=== PATIENT | male | born 1980 | race Caucasian/White ===

== ENCOUNTER → 2021-06-24 | Outpatient (CLI) | payer OTHER ==
[~2021-06-24] MED LIST: HYDR-2761 PO; IBUP-1027 PO; OXYC-325 PO
== END ==
LOC: LAB 10:05
PROVIDERS: ATTEND Surgery
DX: Z01.812 Encounter for preprocedural laboratory examination (principal); Z20.822 Contact with and (suspected) exposure to COVID-19
CPT/HCPCS: U0003

== ENCOUNTER 2021-06-26 06:05 | Day surgery (SDC) | payer OTHER ==
[~2021-06-26] VITALS: Ht 198.1 cm; Wt 118.0 kg
[~2021-06-26 06:05] MED LIST changes: +ACETAMINOPHEN 500 MG TABLET PO PRN; +HYDROmorphone 2 MG/ML INJ. IVP PRN; +IV RINGERS,LACTATED 1000ML 1,000 ML IV SCH; -OXYC-325 PO; +PROCHLORPERAZINE 10 MG/2 ML VIAL. IVP PRN; +fentaNYL PF VIAL 100 MCG/2 ML VIAL IVP PRN
[2021-06-26 06:32] VITALS: BP 120/69
[2021-06-26] MEDS ORDERED: PROPOFOL 10 MG/ML (20ML) VIAL. IV ONE (06:47)
[2021-06-26] MEDS ORDERED: fentaNYL PF VIAL 100 MCG/2 ML VIAL ONE ×2 (06:48→08:16)
[2021-06-26] MEDS ORDERED: ROCURONIUM 50 MG/5 ML VIAL. ONE (06:48)
[2021-06-26] MEDS ORDERED: ONDANSETRON PF 4 MG/2 ML VIAL. ONE (06:48)
[2021-06-26] MEDS ORDERED: LIDOCAINE 1% PF 5 ML VIAL. ONE (06:48)
[2021-06-26] MEDS ORDERED: DEXAMETHASONE SOD PHOS 4 MG/ML VIAL ONE (06:48)
[2021-06-26] MEDS ORDERED: GLYCOPYRROLATE 1 MG/5 ML VIAL. ONE (06:51)
[2021-06-26] MEDS ORDERED: BUPIVACAINE-EPI 0.25%-1:200000 MPF 30 ML VIAL. ONE (07:03)
[2021-06-26] MEDS ORDERED: KETAMINE HCL IN NACL, ISO-OSM 50 MG/5 ML SYRINGE ONE (07:22)
[2021-06-26] MEDS ORDERED: SUGAMMADEX SODIUM 200 MG/2 ML VIAL. IVP ONE (08:00)
[2021-06-26] MEDS ORDERED: SURGICEL HEMOSTAT 4X8 EACH. ONE (08:04)
[2021-06-26] MEDS ORDERED: HYDROmorphone 2 MG/ML INJ. ONE (08:28)
--- NOTE | 2021-06-26 08:34 | PDOC4 ---
Operative Note Operative Note Date: June 262021 at 8:30 AM Preoperative diagnosis: Chronic cholecystitis cholelithiasis Postoperative diagnosis: Same Procedure: Laparoscopic cholecystectomy with fluorescein cholangiography Surgeon: Earl Specimen: Gallbladder Dictation: Patient is a 40-year-old male who is had right upper quadrant abdominal pain for couple of years most recently had ultrasound showing gallstones and mildly thickened gallbladder wall. The procedure of laparoscopic cholecystectomy was explained to the patient detail risk-benefit were also discussed occluding bleeding infection injury to intra-abdominal contents possible necessitating further open operations alternatives to this procedure also discussed with the patient who seemed to understand and gave a verbal and written consent to have the procedure performed. Patient was taken to the operating room placed in the supine position general anesthesia was initiated once patient was sleeping intubated his abdomen was [id number] and draped usual sterile fashion using ChloraPrep. An area just below the umbilicus was injected with quarter percent Marcaine with epinephrine incision made 11 blade scalpel and a varies needle was placed within the abdomen creating pneumoperitoneum once this was complete the millimeter port was placed a 5 mm camera is placed within the abdomen abdomen was inspected no other abnormalities were noted was noted the gallbladder is somewhat thickened with some omental adhesions. A 5 mm port was placed in the epigastrium a 5 mm port was placed in the right lateral abdomen a 5 mm port was placed in the right midabdomen all under direct visualization. The dome of the gallbladder is grasped retracted cephalad, the adherent tissues to the omentum were taken down blunt dissection exposing the gallbladder the infundibulum the gallbladder is grasped tract laterally exposing the triangle. The adherent tissues the triangle were taken down with blunt dissection exposing the cystic duct and cystic artery fluorescing cholangiography was performed did show that the cystic duct was obstructed with a large stone the common bile duct was visualized with good dye. The cystic duct was doubly clipped and transected the cystic artery was clipped and transected the gallbladder was taken off the liver with hook electrocautery. There was some bleeding in the fossa this was controlled with Surgicel packings the gallbladder was placed in Endo Catch bag moving the umbilicus the right upper quadrant was irrigated and suctioned dry hemostasis deemed appropriate at that point and the pneumoperitoneum was reduced all ports were removed the fasc ial defect at the umbilicus was closed with a [id number] 0 Vicryl suture and the skin was reapproximated all port sites for subcuticular Monocryl Mastisol Steri-Strips and island dressings were applied. Patient was awakened extubated operating room taken to recovery in stable condition all sponge instrument needle counts listed as correct estimated blood loss 20 mL BAMBI GARY MD Jun 26, 2021 08:34
[2021-06-26] MEDS ORDERED: OXYC-325 PO (08:36)
--- NOTE | 2021-06-26 08:38 | DISCH ---
DISCHARGE INSTRUCTIONS Condition on Discharge Condition on Discharge: Stable Activity After Discharge Activity Instructions for Disc: Avoid exertion Other activity instructions: No lifting more than 20 pounds for 2 weeks Diet after Discharge Diet after Discharge: Low Fat Wound Incision Care Other wound/incision instructi: May shower in 24 hours Contacting the after DC Call your doctor for: If your condition worsens Follow-Up Follow up with: Dr. Gary in 2-week BAMBI GARY MD Jun 26, 2021 08:38
[2021-06-26] MEDS: fentaNYL PF VIAL 100 MCG/2 ML VIAL IVP PRN ×2 (08:52→08:58)
[2021-06-26] MEDS ORDERED: PROCHLORPERAZINE 10 MG/2 ML VIAL. ONE (09:02)
[2021-06-26] MEDS ORDERED: MORPHINE SULFATE 2 MG/ML INJ. ONE (09:02)
[2021-06-26] MEDS: MORPHINE SULFATE 2 MG/ML INJ. IVP PRN ×2 (09:08→09:19)
[2021-06-26] MEDS ORDERED: oxyCODONE/APAP 5/325 1 TAB TABLET PO ONE ×2 (09:15)
[2021-06-26 09:32] VITALS: BP 143/84
--- NOTE | 2021-06-27 15:08 | PATHOLOGY ---
[facility] Accession Number: [id number] . 01 Material submitted: . gallbladder - GALLBLADDER WITH CONTENTS . 01 Clinical history: . CHRONIC CHOLECYSTITIS . 02 Diagnosis: Gallbladder, laparoscopic cholecystectomy: - Cholelithiasis. - Chronic cholecystitis with focal reactive fibrosis and hemorrhage. (JP:[facility]; 06/27/2021) [facility] 06/27/2021 1420 Local . 02 Comment: There is no evidence of malignancy. (JP:[facility]; 06/27/2021) . 02 Electronically signed: . Jarrett Snyder MD, Pathologist NPI- [id number] . 01 Gross description: . Fixative: Formalin Labeled: Gallbladder with contents Specimen received: Intact gallbladder Dimensions: 8.8 x 3.8 x 2.2 cm Serosa: [facility] Lymph node: None identified Mucosa: Velvety, pink-red Average wall thickness: 0.2 cm Calculi: Present displaying a light brown and granular to multifaceted appearance Abnormalities: None identified . [employer] [facility] [employer] body, fundus, and the cystic duct margin in cassette A1. ([facility]; 06/26/2021) QAC/QAC 06/26/2021 1516 Local . 02 Pathologist provided ICD-10: K81.1 . 02 CPT . 455317 Specimen Comment: A courtesy copy of this report has been sent to [phone], [phone] Specimen Comment: [id number] Specimen Comment: Report sent to / DR JOHNSTON Specimen Comment: A duplicate report has been generated due to demographic updates. Performed at: [address], [place], [place] [id number] MD Beto Mariee MD Phone: [phone] Performed at: 02 [facility] [address] [place], [place] [id number] MD Jarrett Snyder MD Phone: [phone]
== END 2021-06-26 10:10 | disposition home or self-care (01) ==
LOC: SURG 06:05 → EDUNIT# 07:30 → SURG 10:10
PROVIDERS: ATTEND Surgery
DX: K80.10 Calculus of gallbladder with chronic cholecystitis without obstruction (principal); Z79.899 Other long term (current) drug therapy; Z98.890 Other specified postprocedural states
CPT/HCPCS: 47563; A4930; J0690; J0780; J1100; J1170; J2270; J2405; J2704; J3010; J3490; A4657